=== PATIENT | female | born 1985 | race Asian ===

== ENCOUNTER → 2023-08-13 | Outpatient (CLI) | payer OTHER | END | disposition home or self-care (01) | LOC: RADMN 10:11 | PROVIDERS: ATTEND Internal Medicine Geriatric Medicine | DX: R05.1 Acute cough (principal) | CPT/HCPCS: 71046 ==

== ENCOUNTER → 2023-08-13 | Outpatient (CLI) | payer OTHER ==
[2023-08-13 10:02] LABS: ALANINE AMINOTRANSFERASE 52 U/L (12-78); ALBUMIN 3.5 g/dL (3.4-5.0); ALKALINE PHOSPHATASE 90 U/L (46-116); ANION GAP 9 mmol/L (8-16); ASPARTATE AMINOTRANSFERASE 25 U/L (15-37); BILIRUBIN,TOTAL 0.2 mg/dL (0.1-1.0); CALCIUM, TOTAL 8.8 mg/dL (8.8-10.5); CARBON DIOXIDE 27 mmol/L (22-29); CHLORIDE 103 mmol/L (98-107); CHOL/HDL RATIO 4.2 (3.9-5.7); CHOLESTEROL 212 mg/dL (131-200); CREATININE 0.67 mg/dL (0.60-1.30); GLOMERULAR FILTR. RATE CALC > 60 mL/min (>60); GLUCOSE,RANDOM 102 mg/dL (70-110); HDL CHOLESTEROL 51 mg/dL (40-60); LDL CHOL (CALC.) 115 mg/dL (0-130); POTASSIUM 3.7 mmol/L (3.5-5.1); SODIUM SERUM 139 mmol/L (136-145); TOTAL PROTEIN, SERUM 7.3 g/dL (6.4-8.2); TRIGLYCERIDES 228 mg/dL (15-150); UREA NITROGEN, BLOOD 10 mg/dL (7-18)
[2023-08-13 10:05] LABS: HEMOGLOBIN A1C 5.6 % (3.8-5.6)
[2023-08-13 10:36] LABS: VITAMIN B12 LEVEL 547 pg/mL (211-911); VITAMIN D,TOTAL (25-0H) 30 ng/mL (30-100)
[2023-08-13 10:52] LABS: FOLATE SERUM > 24.0 ng/mL (5.4-)
[2023-08-13 11:13] LABS: THYROID STIMULATING HORMONE 1.75 uIU/mL (0.36-3.74)
== END | disposition home or self-care (01) ==
LOC: LABMN 09:20
PROVIDERS: ATTEND Internal Medicine Geriatric Medicine
DX: Z00.00 Encounter for general adult medical examination without abnormal findings (principal)
CPT/HCPCS: 80053; 80061; 82306; 82607; 82746; 83036; 84443

== ENCOUNTER 2024-03-06 00:06 | Emergency (ER) | payer OTHER ==
[~2024-03-06] VITALS: Ht 149.9 cm; Wt 63.6 kg
[2024-03-06 00:19] VITALS: TEMP 98.4
[2024-03-06] MEDS: IBUPROFEN 600 MG TABLET PO ONE (02:23)
[2024-03-06 02:29] VITALS: BP 126/80; PULSE 69; RESP 16; O2SAT 98
== END 2024-03-06 02:31 | disposition home or self-care (01) ==
LOC: EMS 00:06
DX: S60.031A Contusion of right middle finger without damage to nail, initial encounter (principal); W50.3XXA Accidental bite by another person, initial encounter; Y93.89 Activity, other specified; Y92.89 Other specified places as the place of occurrence of the external cause; Y99.0 Civilian activity done for income or pay
CPT/HCPCS: 99283